=== PATIENT | male | born 1990 | race Caucasian/White ===

== ENCOUNTER 2017-01-26 20:24 | Emergency (ER) | payer OTHER ==
[~2017-01-26] VITALS: Ht 175.3 cm; Wt 98.4 kg
--- NOTE | ~2017-01-26 | CR72 ---
[facility]. [facility] A Service of [facility] & [facility] RADIOLOGY TEXT RESULTS PATIENT: SERGIO GUERIN LOCATION: SED : 89 UNIT #: [id number] AGE: [address]: Adonis Schaffer MD SEX: M ORDER DR: [id number] [address] [address] [id number] E MR#: [id number] Acc #: [id number] NAME: SERGIO GUERIN : 1990 SEX: M STUDY DATE/TIME: 01/26/2017 20:53 UNIT: SED ROOM: STUDY DESCRIPTION: CR Chest Single View Portable Attending Physician: Adonis Schaffer M.D. Ordering Physician: Adonis Schaffer M.D. MEDICAL IMAGING REPORT This report is preliminary unless electronic signature is present. EXAM Portable chest HISTORY Chest pain for 1 week. FINDINGS A single AP portable view of the chest shows both lungs to be clear. The heart is normal in size. The mediastinal contour is normal. No significant bone abnormalities are seen. IMPRESSION Normal portable chest. Dictated by... John Almodovar M.D. THIS IS AN ELECTRONICALLY VERIFIED REPORT John Almodovar M.D. at 01/27/2017 3:16 PM DFL/pcl TD: 01/26/2017 21:39 JOB #: [id number] MEDICAL IMAGING REPORT Page 1 of 1
--- NOTE | ~2017-01-26 | CT16 ---
[facility] A Service of [facility] RADIOLOGY TEXT RESULTS PATIENT: SERGIO GUERIN LOCATION: SED : 89 UNIT #: [id number] AGE: [address]: Adonis Schaffer MD SEX: M ORDER DR: [id number] [address] [address] [id number] E MR#: [id number] Acc #: [id number] NAME: SERGIO GUERIN : 1990 SEX: M STUDY DATE/TIME: 01/26/2017 22:46 UNIT: SED ROOM: STUDY DESCRIPTION: CT Angio Chest for PE Attending Physician: Adonis Schaffer M.D. Ordering Physician: Adonis Schaffer M.D. Primary Care Physician: No Primary Care Physician MEDICAL IMAGING REPORT This report is preliminary unless electronic signature is present. EXAMINATION CTA chest, PE protocol with IV contrast. DATE 01/26/2017 HISTORY Shortness of breath WITH chest pain and left shoulder pain today. Chest pressures since last Wednesday. COMPARISON AP portable chest 01/26/2017 at 20:53. No prior CT chest at this institution for comparison. PROCEDURE 2 mm axial images through the chest after IV contrast administration. 3-D coronal MIP reformatted images were obtained. This CT exam was performed with one or more of the following radiation dose reduction techniques: automatic exposure control, adjustment of mA and/or kV according to patient size, and iterative reconstruction. FINDINGS No pulmonary embolism, no aortic aneurysm, no aortic dissection. No pathologically enlarged lymph nodes. No acute airspace disease. No pericardial effusion. No pleural effusion. No pneumothorax. 5 mm low-density lesion in the hepatic dome is technically too small to characterize but specifically is favored to represent a cyst. There are 2 nonobstructing calculi in the right upper renal pole measuring 3 to 4 mm each. Remainder of the included upper abdominal organs appear unremarkable. No acute osseous abnormalities are identified. IMPRESSION 1. No acute chest findings. No pulmonary embolism. Clear lungs. [facility] A Service of [facility] RADIOLOGY TEXT RESULTS PATIENT: SERGIO GUERIN LOCATION: SED : 89 UNIT #: [id number] AGE: [address]: Adonis Schaffer MD SEX: M ORDER DR: 2. Nonobstructing right renal stones. Dictated by... Minoo Milner M.D. THIS IS AN ELECTRONICALLY VERIFIED REPORT Minoo Milner M.D. at 01/27/2017 9:56 PM PARRIS/moris TD: 01/27/2017 00:33 JOB #: [id number] MEDICAL IMAGING REPORT Page 1 of 1
--- NOTE | ~2017-01-26 | EKG ---
PATIENT: SERGIO GUERIN UNIT #: [id number] Ventricular Rate: 81 BPM Atrial Rate: 81 BPM P-R Interval: 146 ms QRS Duration: 90 ms Q-T Interval: 358 ms QTC Calculation(Bezet): 415 ms P Grulla: 65 degrees Calculated R Grulla: 70 degrees Calculated T Grulla: 40 degrees Diagnosis Line: Normal sinus rhythm Diagnosis Line: Possible Left atrial enlargement Diagnosis Line: Borderline ECG Diagnosis Line: No previous ECGs available Diagnosis Line: Confirmed by MARIBEL KAUR MD ([id number]) on Diagnosis Line: 01/27/2017 2:15:08 PM INTERPRETING MD: VINCENT BROTHERS
[~2017-01-26 20:24] MED LIST: BENADRYL25 M1 PO; CLARITIN10 MG
[2017-01-26] MEDS ORDERED: NO MEDICATIONS (20:35)
[2017-01-26 20:49] LABS: BASOPHIL# 0.1 X10e3 (0-0.3); BASOPHIL% 1.4 % (0-2.5); EOSINOPHIL# 0.3 X10e3 (0-0.7); EOSINOPHIL% 4.3 % (0.0-7.0); HEMATOCRIT 46.6 % (38.0-50.0); HEMOGLOBIN 15.7 gm/dL (13.0-16.0); LYMPHOCYTE# 2.7 X10e3 (1.0-3.5); LYMPHOCYTE% 35.1 % (17.0-45.0); MEAN CELL VOLUME 89.8 FL (83-96); MEAN CORPUSCULAR HEMOGLOBIN 30.3 PG (28-34); MEAN CORPUSCULAR HGB CONC 33.7 g/dL (30-36); MEAN PLATELET VOLUME 8.2 FL (6.5-11.5); MONOCYTE# 0.6 X10e3 (0-1.0); MONOCYTE% 8.2 % (3.0-12.0); PLATELET COUNT 214 X10e3 (140-420); RED BLOOD COUNT 5.19 X10e (3.90-5.60); RED CELL DISTRIBUTION WIDTH 13.1 % (11.0-15.5); WHITE BLOOD COUNT 7.8 X10e3 (4.0-10.5)
[2017-01-26 20:55] LABS: DIFF IND NO
[2017-01-26 21:00] LABS: PROTHROMBIN TIME (PATIENT) 11.7 SECONDS (9.5-12.4)
[2017-01-26 21:07] LABS: POC - CKMB <1.0 ng/mL (0.0-7.9); POC - TROPONIN <0.05 ng/mL (<=0.05)
[2017-01-26 21:07] LABS: PARTIAL THROMBOPLASTIN TIME 32.7 SECONDS (25.6-38.1)
[2017-01-26 21:08] LABS: ALBUMIN SERUM 4.3 g/dL (3.5-5.0); BILIRUBIN,TOTAL 0.6 mg/dL (0.2-2.0); BUN/CREATININE RATIO 14.44; CALCIUM SERUM 8.8 mg/dL (8.4-10.2); CREATININE SERUM 0.9 mg/dL (0.6-1.4); GLOM FILT RATE Estimated 116.6 mL/min (>60); PROTEIN TOTAL SERUM 7.6 g/dL (6.0-8.3)
[2017-01-26 21:54] LABS: AMPHETAMINE NEG (NEG); BARBITURATES NEG (NEG); BENZODIAZEPINES NEG (NEG); COCAINE NEG (NEG); MARIJUANA NEG (NEG); OPIATES NEG (NEG); TRICYCLIC ANTIDEPRESSANTS NEG (NEG); U METHADONE NEG (NEG)
[2017-01-26 23:31] LABS: POC - CKMB <1.0 ng/mL (0.0-7.9)
[2017-01-26 23:32] LABS: POC - TROPONIN <0.05 ng/mL (<=0.05)
[2017-03-17] MEDS ORDERED: OMEPRAZOLE40 M1 PO (12:53)
[2017-03-17] MEDS ORDERED: TIZANIDINE HCL4 M1 PO (12:54)
== END 2017-01-27 00:09 | disposition home or self-care (01) ==
LOC: SED 20:24
DX: R07.2 Precordial pain (principal); F17.200 Nicotine dependence, unspecified, uncomplicated
CPT/HCPCS: 36415; 71010; 71275; 80053; 80307; 82553; 84484; 85025; 85379; 85610; 85730; 93005; 99285; Q9967

== ENCOUNTER 2017-02-28 16:21 | Emergency (ER) | payer OTHER ==
[~2017-02-28] VITALS: Ht 175.3 cm; Wt 95.2 kg
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
[~2017-02-28 16:21] MED LIST changes: +NO MEDICATIONS
[2017-03-17] MEDS ORDERED: OMEPRAZOLE40 M1 PO (12:53)
[2017-03-17] MEDS ORDERED: TIZANIDINE HCL4 M1 PO (12:54)
== END 2017-02-28 20:02 | disposition home or self-care (01) ==
LOC: SED 16:21
DX: S93.401A Sprain of unspecified ligament of right ankle, initial encounter (principal); F17.210 Nicotine dependence, cigarettes, uncomplicated; W01.198A Fall on same level from slipping, tripping and stumbling with subsequent striking against other object, initial encounter; Y92.009 Unspecified place in unspecified non-institutional (private) residence as the place of occurrence of the external cause
CPT/HCPCS: 29515; 73610; 73630; 99283